=== PATIENT | male | born 1965 | race Caucasian/White ===

== ENCOUNTER → 2016-03-23 | Outpatient (CLI) | payer OTHER ==
[~2016-03-23] MED LIST: AMOXICILLIN500 M1 PO; CALCIUM 600 +1 EAC3 PO; CALCIUM 600 +1 EAC8 PO; CLINDAMYCIN HC150 MG PO; DOXYCYCLINE HYC50 M1 PO; FOLIC ACID1 MG PO; K-DUR20 MEQ PO; LOVENOX60 MG/0.6 SC; MAGNESIUM400 M1 PO; Motrin PO; PREDNISONE5 MG PO; Pepcid PO; TARCEVA PO; TARCEVA150 MG PO; TRAMADOL HCL50 MG PO; VITAMIN B; VITAMIN B-12500 MC5 SL; VITAMIN D32000 UNI1 PO; Vitamin B-12 IM; XGEVA120 MG/1.7 SC
[2016-03-23 10:16] LABS: INTER. NORMALIZED RATIO 1.1; PROTHROMBIN TIME 10.8 (9.2-11.2); PTT 23.5 (25-32)
[2016-03-24 14:42] LABS: Flow Clinical Information NOT PROVIDED (()); Flow Number of Markers 22 (()); Flow Spec Viability 65 % (()); Flow Specimen Type LYMPH NODE (())
== END | disposition home or self-care (01) ==
LOC: OPR 08:58 → EDSTATUS 09:00
PROVIDERS: Internal Medicine
PROC: 07BJ3ZX Excision of Left Inguinal Lymphatic, Percutaneous Approach, Diagnostic (ICD-10-PCS; principal; 2016-03-23)
DX: C77.5 Secondary and unspecified malignant neoplasm of intrapelvic lymph nodes (principal); C34.90 Malignant neoplasm of unspecified part of unspecified bronchus or lung
CPT/HCPCS: 77012; 85610; 85730; 88184 90; 88185 90; 88189 90; 88305; 88341 TC; 88342 TC; J3010

== ENCOUNTER → 2016-10-06 | Outpatient (CLI) | payer OTHER ==
[~2016-10-06] MED LIST changes: +JADENU360 MG PO; +PREDNISONE10 MG PO
== END | disposition home or self-care (01) ==
LOC: CDC 12:04
DX: C34.90 Malignant neoplasm of unspecified part of unspecified bronchus or lung (principal)
CPT/HCPCS: 93000

== ENCOUNTER 2016-10-12 12:27 | Day surgery (SDC) | payer OTHER ==
[~2016-10-12] VITALS: Ht 172.7 cm; Wt 68.9 kg
[2016-10-12 13:11] VITALS: BP 157/80
[2016-10-12] MEDS ORDERED: NORCO 5/3251 TABLET PO (15:37)
[2016-10-12 16:52] VITALS: BP 134/70
[2016-10-12 18:19] VITALS: BP 142/76
== END 2016-10-12 18:30 | disposition home or self-care (01) ==
LOC: SDC 12:27
DX: I87.8 Other specified disorders of veins (principal); C34.92 Malignant neoplasm of unspecified part of left bronchus or lung; Z86.718 Personal history of other venous thrombosis and embolism; Z79.01 Long term (current) use of anticoagulants; Z86.711 Personal history of pulmonary embolism; Z82.3 Family history of stroke; Z82.49 Family history of ischemic heart disease and other diseases of the circulatory system; Z80.3 Family history of malignant neoplasm of breast; Z80.1 Family history of malignant neoplasm of trachea, bronchus and lung; Z80.0 Family history of malignant neoplasm of digestive organs
CPT/HCPCS: 71010; C1751; C1894; J0690; J2250

== ENCOUNTER 2016-12-28 17:11 | Inpatient (IN) | payer OTHER ==
[~2016-12-28] VITALS: Ht 165.1 cm; Wt 70.5 kg
[~2016-12-28 17:11] MED LIST changes: -CALCIUM 600 +1 EAC8 PO; +CALCIUM600 M1 PO; +CYANOCOBAL1000 MCG/2 IM; +LOVENOX100 MG/1 M SC; -LOVENOX60 MG/0.6 SC; +NORCO 5/3251 TABLET PO; -VITAMIN B-12500 MC5 SL; +VITAMIN D31000 UNIT PO; -VITAMIN D32000 UNI1 PO
[2016-12-28 17:46] LABS: POINT-OF-CARE METER ID UU13113702; POINT-OF-CARE USER ID NUTJNM
[2016-12-28 18:30] LABS: BASOPHIL COUNT 0.1 K/uL (0-0.1); EOSINOPHIL (%) 0.3 % (0-5); HEMATOCRIT 30.3 % (38.0-50.0); IMMATURE GRANULOCYTE (%) 4.3 % (0.0-0.7); IMMATURE GRANULOCYTE COUNT 0.6 K/uL; INSTRUMENT ABS NEUTROPHIL CT 11.2 K/uL; LYMPHOCYTE COUNT 1.5 K/uL (1.0-2.8); MCH 32.3 PG (29.0-34.0); MCHC 31.7 G/DL (30.0-36.0); MONOCYTE (%) 7.8 % (3-12); MONOCYTE COUNT 1.1 K/uL (0-0.8); NEUTROPHIL COUNT 11.2 K/uL (1.8-6.4); RBC DIS.WIDTH-CV 19.2 % (11.8-14.6); RBC DIS.WIDTH-SD 67.8 % (39-53); RED BLOOD COUNT 2.97 M/uL (4.00-5.50); WHITE BLOOD COUNT 14.5 K/uL (4.1-10.2)
[2016-12-28 18:46] LABS: CHLORIDE 105 mEq/L (99-109); POTASSIUM 4.4 mEq/L (3.7-5.4); SODIUM 136 mEq/L (136-147)
[2016-12-28 18:47] LABS: GLUCOSE 108 mg/dL (70-99)
[2016-12-28 18:49] LABS: ANION GAP 10 MEQ/L (2-14)
[2016-12-28 18:51] LABS: GFR ESTIMATE (CALCULATED) > 59 mL/min/
[2016-12-28 18:52] LABS: UREA NITROGEN (BUN) 26 mg/dL (9-23)
[2016-12-28 18:53] LABS: TROP-I INTERPRETATION POSITIVE
[2016-12-28 18:54] LABS: CREATINE KINASE 684 IU/L (1-294); TOTAL CK 684 IU/L (1-294)
[2016-12-28 18:57] LABS: TROPONIN-I 10.18 ng/mL (0.0-0.30)
[2016-12-28 18:59] LABS: CK-MB 14.1 ng/mL (0.0-4.9)
[2016-12-28 19:06] LABS: ANISOCYTOSIS 1+; IMM.PLATELET FRACTION 18.2 (1-7); MACROCYTES 2+; MEAN PLAT.VOLUME 13.8 uM^3 (9.0-12.4); PLAT.SUFFICIENCY VERY DECREASED; PLATELET COUNT 33 K/uL (156-360); POLYCHROMASIA 1+
[2016-12-28] MEDS ORDERED: LISINOPRIL2.5 MG PO (19:11)
[2016-12-28] MEDS ORDERED: LOPRESSOR25 MG PO (19:11)
[2016-12-28] MEDS ORDERED: LIPITOR80 MG PO (19:11)
[2016-12-28] MEDS ORDERED: ASPIR 8181 M1 PO (19:11)
[2016-12-28] MEDS ORDERED: VANCOCIN HCL125 MG PO ×2 (19:12)
[2016-12-28 20:15] LABS: ADD MIUA? YES; BILIRUBIN NEGATIVE; BLOOD SMALL; COLOR YELLOW ((YELLOW)); GLUCOSE (STRIP) 50; KETONES 20; LEUKOCYTES NEGATIVE; NITRITE NEGATIVE; PROTEIN (STRIP) 30; SPECIFIC GRAVITY 1.019 (1.000-1.030); UROBILINOGEN 0.2 MG/DL (0.2-1.0)
[2016-12-28 20:21] LABS: BACTERIA NONE SEEN /HPF; EPITHELIAL CELLS RARE /HPF; MUCUS TRACE /LPF; RED BLOOD CELLS NONE SEEN /HPF (0-5); WHITE BLOOD CELLS 0-5 /HPF (0-5)
[2016-12-28 21:27] LABS: HDL CHOLESTEROL 35 MG/DL (Desirable>=40); LDL CHOLESTEROL 54 mg/dL (Desirable<100); NON-HDL CHOLESTEROL 129 mg/dL (Desirable<160); TOTAL CHOLESTEROL 164 mg/dL (Desirable<200); TRIGLYCERIDES 375 MG/DL (Normal: <150)
[2016-12-28 22:15] LABS: TROP-I INTERPRETATION POSITIVE
[2016-12-28 22:16] LABS: TROPONIN-I 10.82 ng/mL (0.0-0.30)
[2016-12-28 23:27] VITALS: BP 134/80; BP 138/72
[2016-12-29] VITALS (13 sets, daily range): BP systolic 123–146; BP diastolic 57–76
[2016-12-29 03:43] LABS: POINT-OF-CARE METER ID UU13113781
[2016-12-29 04:23] LABS: POINT-OF-CARE METER ID UU13113781
[2016-12-29 04:35] LABS: MCH 31.9 PG (29.0-34.0); MCHC 30.9 G/DL (30.0-36.0); MCV 103.3 FL (86-99); NRBC (%) 0.2 /100 WBC (0-0); RBC DIS.WIDTH-CV 19.7 % (11.8-14.6); RBC DIS.WIDTH-SD 70.3 % (39-53); WHITE BLOOD COUNT 11.4 K/uL (4.1-10.2)
[2016-12-29 04:36] LABS: RED BLOOD COUNT 2.13 M/uL (4.00-5.50)
[2016-12-29 04:40] LABS: CHLORIDE 109 mEq/L (99-109); POTASSIUM 3.9 mEq/L (3.7-5.4); SODIUM 135 mEq/L (136-147)
[2016-12-29 04:43] LABS: ANION GAP 8 MEQ/L (2-14)
[2016-12-29 04:44] LABS: GLUCOSE 320 mg/dL (70-99); TOTAL BILIRUBIN 0.6 mg/dL (0.0-1.0)
[2016-12-29 04:46] LABS: ALKALINE PHOSPHATASE 358 IU/L (3-129); GFR ESTIMATE (CALCULATED) > 59 mL/min/
[2016-12-29 04:47] LABS: UREA NITROGEN (BUN) 19 mg/dL (9-23)
[2016-12-29 04:55] LABS: TROP-I INTERPRETATION POSITIVE
[2016-12-29 04:56] LABS: TROPONIN-I 8.65 ng/mL (0.0-0.30)
[2016-12-29 05:59] LABS: POINT-OF-CARE METER ID UU14314088
[2016-12-29 06:33] LABS: IMM.PLATELET FRACTION 13.5 (1-7); PLAT.SUFFICIENCY VERY DECREASED
[2016-12-29 06:36] LABS: MEAN PLAT.VOLUME 11.8 uM^3 (9.0-12.4); PLATELET COUNT 26 K/uL (156-360)
[2016-12-29 07:40] LABS: Estimated Average Glucose 137 mg/dL (70-123); HEMOGLOBIN A1c (GLYCOHEMOGLOB) 6.4 % HGB (Below 5.7)
[2016-12-29 12:45] LABS: POINT-OF-CARE METER ID UU13113698
[2016-12-29 14:19] LABS: POINT-OF-CARE METER ID UU13113781
[2016-12-29 22:47] LABS: FIBRINOGEN 185 mg/dL (150-450); INTER. NORMALIZED RATIO 1.5
[2016-12-29 22:49] LABS: PTT 31.5 SEC (25-37)
[2016-12-30 00:48] LABS: POINT-OF-CARE METER ID UU13113781
[2016-12-30 03:43] VITALS: BP 140/68
[2016-12-30 06:22] LABS: POINT-OF-CARE METER ID UU13113781
[2016-12-30 09:00] VITALS: BP 140/69
[2016-12-30 11:36] LABS: POINT-OF-CARE METER ID UU14314088
[2016-12-30 12:59] VITALS: BP 130/63
[2016-12-30 13:03] LABS: BASOPHIL COUNT 0.1 K/uL (0-0.1); EOSINOPHIL (%) 1.1 % (0-5); EOSINOPHIL COUNT 0.2 K/uL (0-0.3); HEMATOCRIT 28.8 % (38.0-50.0); IMMATURE GRANULOCYTE (%) 2.8 % (0.0-0.7); IMMATURE GRANULOCYTE COUNT 0.4 K/uL; INSTRUMENT ABS NEUTROPHIL CT 10.4 K/uL; LYMPHOCYTE COUNT 1.3 K/uL (1.0-2.8); MCH 32.4 PG (29.0-34.0); MONOCYTE (%) 8.5 % (3-12); MONOCYTE COUNT 1.1 K/uL (0-0.8); NEUTROPHIL (%) 77.4 % (45-76); NEUTROPHIL COUNT 10.4 K/uL (1.8-6.4); RBC DIS.WIDTH-CV 19.4 % (11.8-14.6); RBC DIS.WIDTH-SD 66.1 % (39-53); WHITE BLOOD COUNT 13.4 K/uL (4.1-10.2)
[2016-12-30 13:07] LABS: MCV 98.3 FL (86-99); RED BLOOD COUNT 2.93 M/uL (4.00-5.50)
[2016-12-30 13:21] LABS: IMM.PLATELET FRACTION 17.5 (1-7); PLAT.SUFFICIENCY VERY DECREASED
[2016-12-30 13:30] LABS: PLATELET COUNT 16 K/uL (156-360)
[2016-12-30 13:56] LABS: ANION GAP 9 MEQ/L (2-14); CHLORIDE 108 MEQ/L (99-109); GFR ESTIMATE (CALCULATED) > 59 mL/min/; POTASSIUM 3.3 MEQ/L (3.7-5.4); SAMPLE HEMOLYSIS CHECK 0; SAMPLE ICTERIC CHECK 0; SAMPLE LIPEMIA CHECK 0; SODIUM 136 MEQ/L (136-147); UREA NITROGEN (BUN) 9 mg/dL (9-23)
[2016-12-30 14:04] LABS: GLUCOSE 123 mg/dL (70-99)
[2016-12-30 15:19] VITALS: BP 134/67
[2016-12-30 16:36] LABS: POINT-OF-CARE METER ID UU14314088
[2016-12-30 20:00] VITALS: BP 120/68
[2016-12-30 23:55] VITALS: BP 131/61
[2016-12-31 00:04] LABS: POINT-OF-CARE METER ID UU13113781
[2016-12-31 01:06] LABS: POINT-OF-CARE METER ID UU14314088
[2016-12-31 04:00] VITALS: BP 117/61
[2016-12-31 06:01] LABS: POINT-OF-CARE METER ID UU13113781
[2016-12-31 06:23] LABS: ANION GAP 8 MEQ/L (2-14); CHLORIDE 110 MEQ/L (99-109); GFR ESTIMATE (CALCULATED) > 59 mL/min/; GLUCOSE 85 mg/dL (70-99); POTASSIUM 3.6 MEQ/L (3.7-5.4); SAMPLE HEMOLYSIS CHECK 0; SAMPLE ICTERIC CHECK 0; SAMPLE LIPEMIA CHECK 0; SODIUM 140 MEQ/L (136-147); UREA NITROGEN (BUN) 10 mg/dL (9-23)
[2016-12-31 07:45] VITALS: BP 120/59
[2016-12-31 12:03] LABS: POINT-OF-CARE METER ID UU13113781
[2016-12-31 12:50] VITALS: BP 103/57
[2016-12-31 16:55] VITALS: BP 136/70
[2016-12-31 17:35] LABS: POINT-OF-CARE METER ID UU13113781
[2016-12-31 22:03] VITALS: BP 115/76
[2017-01-01] VITALS (18 sets, daily range): BP systolic 102–138; BP diastolic 52–83
[2017-01-01 00:05] LABS: POINT-OF-CARE METER ID UU14314088
[2017-01-01 04:50] LABS: BASOPHIL COUNT 0.1 K/uL (0-0.1); EOSINOPHIL (%) 0.4 % (0-5); HEMATOCRIT 28.6 % (38.0-50.0); IMMATURE GRANULOCYTE (%) 1.1 % (0.0-0.7); IMMATURE GRANULOCYTE COUNT 0.1 K/uL; INSTRUMENT ABS NEUTROPHIL CT 8.3 K/uL; LYMPHOCYTE COUNT 1.1 K/uL (1.0-2.8); MCH 31.6 PG (29.0-34.0); MCHC 32.5 G/DL (30.0-36.0); MCV 97.3 FL (86-99); MONOCYTE (%) 8.1 % (3-12); MONOCYTE COUNT 0.9 K/uL (0-0.8); NEUTROPHIL (%) 79.1 % (45-76); NEUTROPHIL COUNT 8.3 K/uL (1.8-6.4); RBC DIS.WIDTH-SD 63.8 % (39-53); RED BLOOD COUNT 2.94 M/uL (4.00-5.50); WHITE BLOOD COUNT 10.5 K/uL (4.1-10.2)
[2017-01-01 04:51] LABS: CHLORIDE 108 mEq/L (99-109); POTASSIUM 3.8 mEq/L (3.7-5.4); SODIUM 139 mEq/L (136-147)
[2017-01-01 04:52] LABS: GLUCOSE 102 mg/dL (70-99)
[2017-01-01 04:54] LABS: ANION GAP 12 MEQ/L (2-14)
[2017-01-01 04:56] LABS: GFR ESTIMATE (CALCULATED) > 59 mL/min/
[2017-01-01 04:57] LABS: UREA NITROGEN (BUN) 17 mg/dL (9-23)
[2017-01-01 05:22] LABS: IMM.PLATELET FRACTION 22.2 (1-7); PLAT.SUFFICIENCY DECREASED
[2017-01-01 05:23] LABS: PLATELET COUNT 14 K/uL (156-360)
[2017-01-01 06:06] LABS: POINT-OF-CARE METER ID UU13113781
[2017-01-01 09:59] LABS: METH RESISTANT S AUREUS PCR POSITIVE (NEGATIVE)
[2017-01-01 10:33] LABS: PROBE CHECK PASS; SPECIMEN PROCESSING CONTROL PASS
[2017-01-01 17:00] LABS: POINT-OF-CARE METER ID UU13113731
[2017-01-02] VITALS (15 sets, daily range): BP systolic 97–141; BP diastolic 56–73
[2017-01-02 00:32] LABS: POINT-OF-CARE METER ID UU13113803
[2017-01-02 06:24] LABS: POINT-OF-CARE METER ID UU13113803
[2017-01-02 09:40] LABS: Heparin Induced Plt Ab Negative (Negative)
[2017-01-02 10:29] LABS: UFH SRA Result Negative (Negative)
[2017-01-02 15:25] LABS: PLT AB:HLA CLASS I Negative (Negative); Plt Ab:GP IIb/IIIa Negative (Negative); Plt Ab:GP Ia/IIa Negative (Negative); Plt Ab:GP Ib/IX Negative (Negative)
[2017-01-03 03:26] VITALS: BP 110/58
[2017-01-03 07:15] VITALS: BP 110/60
[2017-01-03 11:23] VITALS: BP 112/65
[2017-01-03 13:39] LABS: HEMATOCRIT 24.7 % (38.0-50.0); MCH 31.5 PG (29.0-34.0); MCHC 31.6 G/DL (30.0-36.0); MCV 99.6 FL (86-99); RBC DIS.WIDTH-CV 18.6 % (11.8-14.6); RBC DIS.WIDTH-SD 64.7 % (39-53); RED BLOOD COUNT 2.48 M/uL (4.00-5.50); WHITE BLOOD COUNT 12.3 K/uL (4.1-10.2)
[2017-01-03 13:48] LABS: ALKALINE PHOSPHATASE 326 IU/L (3-129); ANION GAP 4 MEQ/L (2-14); CHLORIDE 108 MEQ/L (99-109); GFR ESTIMATE (CALCULATED) > 59 mL/min/; GLUCOSE 124 mg/dL (70-99); POTASSIUM 4.3 MEQ/L (3.7-5.4); SAMPLE HEMOLYSIS CHECK 1; SAMPLE ICTERIC CHECK 0; SAMPLE LIPEMIA CHECK 0; SODIUM 141 MEQ/L (136-147)
[2017-01-03 13:49] LABS: UREA NITROGEN (BUN) 31 mg/dL (9-23)
[2017-01-03 13:59] LABS: IMM.PLATELET FRACTION 28.1 (1-7); PLAT.SUFFICIENCY VERY DECREASED
[2017-01-03 14:01] LABS: PLATELET COUNT 6 K/uL (156-360)
[2017-01-03 14:13] LABS: MAGNESIUM 2.3 mg/dl (1.3-2.7)
[2017-01-03 15:20] VITALS: BP 118/62
[2017-01-03 19:33] VITALS: BP 135/61
[2017-01-04] VITALS (12 sets, daily range): BP systolic 110–141; BP diastolic 62–81
[2017-01-04 00:20] LABS: POINT-OF-CARE METER ID UU14174225
[2017-01-04 07:10] LABS: POINT-OF-CARE METER ID UU13113717
[2017-01-04 09:03] LABS: HEMATOCRIT 21.8 % (38.0-50.0); MCH 32.6 PG (29.0-34.0); MCHC 32.6 G/DL (30.0-36.0); RBC DIS.WIDTH-CV 18.7 % (11.8-14.6); RBC DIS.WIDTH-SD 66.4 % (39-53); RED BLOOD COUNT 2.18 M/uL (4.00-5.50); WHITE BLOOD COUNT 10.3 K/uL (4.1-10.2)
[2017-01-04 09:25] LABS: EOSINOPHIL (%) 1.2 % (0-5); EOSINOPHIL COUNT 0.1 K/uL (0-0.3); IMM.PLATELET FRACTION 31.3 (1-7); IMMATURE GRANULOCYTE (%) 3.3 % (0.0-0.7); IMMATURE GRANULOCYTE COUNT 0.3 K/uL; INSTRUMENT ABS NEUTROPHIL CT 7.7 K/uL; LYMPHOCYTE COUNT 1.3 K/uL (1.0-2.8); MONOCYTE (%) 7.3 % (3-12); MONOCYTE COUNT 0.8 K/uL (0-0.8); NEUTROPHIL (%) 75.3 % (45-76); NEUTROPHIL COUNT 7.7 K/uL (1.8-6.4); PLAT.SUFFICIENCY VERY DECREASED
[2017-01-04 09:27] LABS: ANION GAP 5 MEQ/L (2-14); CHLORIDE 109 MEQ/L (99-109); GFR ESTIMATE (CALCULATED) > 59 mL/min/; GLUCOSE 139 mg/dL (70-99); POTASSIUM 3.8 MEQ/L (3.7-5.4); SAMPLE HEMOLYSIS CHECK 0; SAMPLE ICTERIC CHECK 0; SAMPLE LIPEMIA CHECK 0; SODIUM 144 MEQ/L (136-147)
[2017-01-04 09:31] LABS: PLATELET COUNT 6 K/uL (156-360)
[2017-01-04 09:42] LABS: UREA NITROGEN (BUN) 47 mg/dL (9-23)
[2017-01-04 11:21] LABS: POINT-OF-CARE METER ID UU13113717
[2017-01-04 16:18] LABS: POINT-OF-CARE METER ID UU14174225
[2017-01-04 20:39] LABS: POINT-OF-CARE METER ID UU14174225
[2017-01-04 21:27] LABS: C DIFF TOXIN NEGATIVE (NEGATIVE)
[2017-01-04 21:29] LABS: PROBE CHECK PASS; SPECIMEN PROCESSING CONTROL PASS
[2017-01-05] VITALS (10 sets, daily range): BP systolic 115–148; BP diastolic 48–80
[2017-01-05 06:28] LABS: POINT-OF-CARE METER ID UU14174225
[2017-01-05 06:50] LABS: HEMATOCRIT 23.4 % (38.0-50.0); MCHC 32.9 G/DL (30.0-36.0); NRBC (%) 0.3 /100 WBC (0-0); RBC DIS.WIDTH-CV 19.9 % (11.8-14.6); RBC DIS.WIDTH-SD 63.2 % (39-53); RED BLOOD COUNT 2.57 M/uL (4.00-5.50); WHITE BLOOD COUNT 9.9 K/uL (4.1-10.2)
[2017-01-05 06:53] LABS: MCV 91.1 FL (86-99)
[2017-01-05 06:58] LABS: ALKALINE PHOSPHATASE 332 IU/L (3-129); ANION GAP 9 MEQ/L (2-14); CHLORIDE 109 MEQ/L (99-109); GFR ESTIMATE (CALCULATED) > 59 mL/min/; GLUCOSE 135 mg/dL (70-99); POTASSIUM 3.8 MEQ/L (3.7-5.4); SAMPLE HEMOLYSIS CHECK 0; SAMPLE ICTERIC CHECK 0; SAMPLE LIPEMIA CHECK 0; SODIUM 147 MEQ/L (136-147); UREA NITROGEN (BUN) 61 mg/dL (9-23)
[2017-01-05 06:59] LABS: TOTAL BILIRUBIN 1.5 MG/DL (0.0-1.0)
[2017-01-05 07:19] LABS: ABS NEUTROPHIL COUNT 9.2; ANISOCYTOSIS 1+; EOSINOPHIL ABS CT 0; IMM.PLATELET FRACTION 13.7 (1-7); INSTRUMENT ABS NEUTROPHIL CT 7.5 K/uL; PLAT.SUFFICIENCY VERY DECREASED; POIKILOCYTOSIS 2+; SCHISTOCYTES 1+; SPHEROCYTES 1+
[2017-01-05 07:21] LABS: PLATELET COUNT 24 K/uL (156-360)
[2017-01-05 07:25] LABS: POINT-OF-CARE METER ID UU14174225
[2017-01-05 12:43] LABS: POINT-OF-CARE METER ID UU14174225
[2017-01-05 16:55] LABS: POINT-OF-CARE METER ID UU13113717
[2017-01-05 23:46] LABS: POINT-OF-CARE METER ID UU13113717
[2017-01-06 04:30] VITALS: BP 141/70
[2017-01-06 06:13] LABS: HEMATOCRIT 24.6 % (38.0-50.0); MCH 30.2 PG (29.0-34.0); MCHC 32.5 G/DL (30.0-36.0); MCV 92.8 FL (86-99); NRBC (%) 0.8 /100 WBC (0-0); RBC DIS.WIDTH-CV 19.6 % (11.8-14.6); RBC DIS.WIDTH-SD 63.4 % (39-53); RED BLOOD COUNT 2.65 M/uL (4.00-5.50); WHITE BLOOD COUNT 13.8 K/uL (4.1-10.2)
[2017-01-06 06:30] LABS: POINT-OF-CARE METER ID UU13113717
[2017-01-06 06:39] LABS: ALKALINE PHOSPHATASE 417 IU/L (3-129); ANION GAP 7 MEQ/L (2-14); CHLORIDE 108 MEQ/L (99-109); GFR ESTIMATE (CALCULATED) > 59 mL/min/; GLUCOSE 124 mg/dL (70-99); POTASSIUM 3.6 MEQ/L (3.7-5.4); SAMPLE HEMOLYSIS CHECK 0; SAMPLE ICTERIC CHECK 0; SAMPLE LIPEMIA CHECK 0; SODIUM 148 MEQ/L (136-147); UREA NITROGEN (BUN) 41 mg/dL (9-23)
[2017-01-06 07:25] LABS: ABS NEUTROPHIL COUNT 10.6; ANISOCYTOSIS 1+; BAND NEUTROPHILS 2.6 % (0-8.0); BASOPHILS 0.9 %; EOSINOPHIL ABS CT 0; IMM.PLATELET FRACTION 31.9 (1-7); INSTRUMENT ABS NEUTROPHIL CT 9.3 K/uL; LYMPHOCYTES 15.6 % (15.0-45.0); METAMYELOCYTES 3.5 %; MICROCYTOSIS 1+; MYELOCYTES 0.9 %; NUCLEATED RBC'S 0.9; PLAT.SUFFICIENCY VERY DECREASED; POIKILOCYTOSIS 1+; SCHISTOCYTES 1+; SEG.NEUTROPHILS 73.9 % (46.0-76.0)
[2017-01-06 07:50] LABS: PLATELET COUNT 17 K/uL (156-360)
[2017-01-06 09:27] VITALS: BP 132/74
[2017-01-06 13:25] LABS: POINT-OF-CARE METER ID UU13113717
[2017-01-06 17:06] LABS: POINT-OF-CARE METER ID UU13113717
[2017-01-06 18:00] VITALS: BP 138/80
[2017-01-07 00:24] VITALS: BP 131/79
[2017-01-07 01:37] LABS: POINT-OF-CARE METER ID UU14174225
[2017-01-07 07:26] LABS: HEMATOCRIT 26.4 % (38.0-50.0); MCH 30.9 PG (29.0-34.0); MCHC 31.8 G/DL (30.0-36.0); NRBC (%) 1.7 /100 WBC (0-0); RBC DIS.WIDTH-CV 19.3 % (11.8-14.6); RBC DIS.WIDTH-SD 64.8 % (39-53); RED BLOOD COUNT 2.72 M/uL (4.00-5.50); WHITE BLOOD COUNT 16.7 K/uL (4.1-10.2)
[2017-01-07 07:28] LABS: MCV 97.1 FL (86-99)
[2017-01-07 07:30] LABS: ANION GAP 7 MEQ/L (2-14); CHLORIDE 104 MEQ/L (99-109); GFR ESTIMATE (CALCULATED) > 59 mL/min/; GLUCOSE 149 mg/dL (70-99); SAMPLE HEMOLYSIS CHECK 0; SAMPLE ICTERIC CHECK 0; SAMPLE LIPEMIA CHECK 0; SODIUM 146 MEQ/L (136-147); UREA NITROGEN (BUN) 34 mg/dL (9-23)
[2017-01-07 07:37] LABS: ALKALINE PHOSPHATASE 526 IU/L (3-129); POTASSIUM 4.4 MEQ/L (3.7-5.4); TOTAL BILIRUBIN 0.7 MG/DL (0.0-1.0)
[2017-01-07 07:45] LABS: ABS NEUTROPHIL COUNT 13.9; ANISOCYTOSIS 2+; BAND NEUTROPHILS 2.6 % (0-8.0); BASOPHILS 0.9 %; EOSINOPHIL ABS CT 0.3; EOSINOPHILS 1.8 % (0-5.0); LYMPHOCYTES 5.3 % (15.0-45.0); METAMYELOCYTES 2.7 %; MICROCYTOSIS 1+; MYELOCYTES 0.9 %; NUCLEATED RBC'S 1.8; OVALOCYTES 1+; PLAT.SUFFICIENCY VERY DECREASED; POIKILOCYTOSIS 1+; POLYCHROMASIA 1+; SCHISTOCYTES 1+; SEG.NEUTROPHILS 80.5 % (46.0-76.0); SPHEROCYTES 1+; STOMATOCYTES 1+
[2017-01-07 07:49] LABS: PLATELET COUNT 19 K/uL (156-360)
[2017-01-07 08:15] LABS: POINT-OF-CARE METER ID UU13113717
[2017-01-07 10:37] VITALS: BP 118/64
[2017-01-07 13:42] VITALS: BP 120/60
== END 2017-01-07 14:42 | DRG 64 ==
LOC: EME 17:11 → EDOF 20:33 → 4WEST 20:33 → 4EAST 20:33 → ENRESERV 20:34 → 4EAST 22:59 → 4WEST 01-01 08:13 → ENRESERV 01-02 14:43 → 5SOUTH 01-02 21:58
PROVIDERS: Emergency Medicine; Family Medicine; Hospitalist; Internal Medicine; Internal Medicine Hematology & Oncology; Student in an Organized Health Care Education/Training Program; Surgery
PROC: 30233N1 Transfusion of Nonautologous Red Blood Cells into Peripheral Vein, Percutaneous Approach (ICD-10-PCS; principal; 2016-12-29)
PROC: 5A09358 Assistance with Respiratory Ventilation, Less than 24 Consecutive Hours, Intermittent Positive Airway Pressure (ICD-10-PCS; 2017-01-01)
PROC: 30233R1 Transfusion of Nonautologous Platelets into Peripheral Vein, Percutaneous Approach (ICD-10-PCS; 2017-01-04)
DX: I63.511 Cerebral infarction due to unspecified occlusion or stenosis of right middle cerebral artery (principal); I22.2 Subsequent non-ST elevation (NSTEMI) myocardial infarction; I21.4 Non-ST elevation (NSTEMI) myocardial infarction; J96.01 Acute respiratory failure with hypoxia; J15.9 Unspecified bacterial pneumonia; J44.0 Chronic obstructive pulmonary disease with (acute) lower respiratory infection; A04.72 Enterocolitis due to Clostridium difficile, not specified as recurrent; G93.6 Cerebral edema; D61.01 Constitutional (pure) red blood cell aplasia; D69.6 Thrombocytopenia, unspecified; C78.00 Secondary malignant neoplasm of unspecified lung; C79.51 Secondary malignant neoplasm of bone; C79.52 Secondary malignant neoplasm of bone marrow; M62.82 Rhabdomyolysis; G81.94 Hemiplegia, unspecified affecting left nondominant side; R13.10 Dysphagia, unspecified; I27.20 Pulmonary hypertension, unspecified; I08.3 Combined rheumatic disorders of mitral, aortic and tricuspid valves; R04.0 Epistaxis; S30.810A Abrasion of lower back and pelvis, initial encounter; I25.10 Atherosclerotic heart disease of native coronary artery without angina pectoris; I87.8 Other specified disorders of veins; R41.82 Altered mental status, unspecified; Y95 Nosocomial condition; Z51.5 Encounter for palliative care; Z66 Do not resuscitate; Z85.118 Personal history of other malignant neoplasm of bronchus and lung; Z92.21 Personal history of antineoplastic chemotherapy; Z86.711 Personal history of pulmonary embolism; Z86.718 Personal history of other venous thrombosis and embolism; Z86.73 Personal history of transient ischemic attack (TIA), and cerebral infarction without residual deficits; I25.2 Old myocardial infarction; Z95.1 Presence of aortocoronary bypass graft; Z95.5 Presence of coronary angioplasty implant and graft; Z87.442 Personal history of urinary calculi; Z79.82 Long term (current) use of aspirin
CPT/HCPCS: 70450; 70544; 70549; 70551; 71010; 80048; 80053; 80061; 80069; 80202; 81003; 82040; 82550; 82553; 82607; 82948; 83036; 83605; 83735; 84100; 84484; 85025; 85027; 85384; 85610; 85730; 86022 90; 86850; 86900; 86901; 86920; 87040; 87493; 87641; 92526 GN; 92610 GN; 93005; 93306; 94002; 94799; 97530 GO; 97530 GP; 99281; 99285; J0610; J0692; J1170; J1652; J1940; J2060; J2270; J3370; J3480; J7030; J7040; J7042; J7050; J7512; P9016; P9035; S0030

== ENCOUNTER 2017-01-07 14:40 | Inpatient (IN) | payer OTHER ==
[~2017-01-07 14:40] MED LIST changes: +ASPIR 8181 M1 PO; +LIPITOR80 MG PO; +LISINOPRIL2.5 MG PO; +LOPRESSOR25 MG PO; +VANCOCIN HCL125 MG PO
[2017-01-08 06:12] VITALS: BP 00/00
== END 2017-01-08 12:00 | DRG 180 ==
LOC: 5SOUTH 14:40 → ENRESERV 15:53 → 5EAST 19:15
DX: C34.12 Malignant neoplasm of upper lobe, left bronchus or lung (principal); Z51.5 Encounter for palliative care; Z66 Do not resuscitate; D61.01 Constitutional (pure) red blood cell aplasia; E46 Unspecified protein-calorie malnutrition; D69.6 Thrombocytopenia, unspecified; I21.4 Non-ST elevation (NSTEMI) myocardial infarction; I69.354 Hemiplegia and hemiparesis following cerebral infarction affecting left non-dominant side; I69.391 Dysphagia following cerebral infarction; R13.10 Dysphagia, unspecified
CPT/HCPCS: J2270